=== PATIENT | female | born 1935 | race Caucasian/White ===

== ENCOUNTER 2023-08-02 16:58 | Observation (INO) | payer MEDICARE ==
[2023-08-02] MEDS ORDERED: Famotidine/PF 20 mg/2ml Vial ONE (17:39)
[2023-08-02] MEDS ORDERED: methylPREDNISolone Sod Succ/PF 125 MG/2 ML VIAL ONE (17:39)
[2023-08-02] MEDS ORDERED: diphenhydrAMINE 50 MG/ML VIAL ONE (17:39)
[2023-08-02 18:03] LABS: #Monocytes 0.3 10x3/uL (0.0-1.1); #Neutrophils 7.3 10x3/uL (1.5-8.4); %Basophils 0.5 % (0.0-2.0); %Eosinophils 0.4 % (0.0-6.0); %Lymphocytes 9.6 % (18.0-47.0); %Monocytes 3.6 % (0.0-10.0); %Neutrophils 85.8 % (40.0-75.0); Hematocrit 40.5 % (34.9-44.5); Mean Corpuscular HGB CONC 34.6 g/dL (32.0-36.0); Mean Corpuscular Hemoglobin 32.2 pg (27.0-33.0); Mean Corpuscular Volume 93.1 fl (81.6-98.3); Mean Platelet Volume 11.1 fl (7.4-10.4); Platelet Count 173 10x3/uL (150-450); RBC Distribution Width 12.5 % (11.5-14.5); Red Blood Cell (RBC) Count 4.35 10x6/uL (3.90-5.03); White Blood Cell (WBC) Count 8.5 10x3/uL (3.5-10.5)
[2023-08-02 18:18] LABS: ALT (SGPT) 10 U/L (8-55); AST (SGOT) 16 U/L (5-34); Albumin 4.4 g/dL (3.4-4.8); Alkaline Phosphatase 77 U/L (40-110); Anion Gap 18 mmol/L (10-20); BUN (Urea Nitrogen) 11 mg/dL (9.8-20.1); Bilirubin, Total 0.6 mg/dL (0.2-1.2); CK (CPK) 83 U/L (29-168); Calc. Creatinine Clearance 0 mL/min (70-130); Carbon Dioxide 20 mmol/L (23-31); Chloride 107 mmol/L (98-107); Estimated GFR 86; Globulin 2.2 g/dL (2.4-3.5); Glucose 106 mg/dL (83-110); Protein, Total 6.6 g/dL (5.8-8.1); Sodium 141 mmol/L (136-145)
[2023-08-02] MEDS ORDERED: Loperamide HCl 2 MG CAP PO PRN (19:19)
[2023-08-02] MEDS ORDERED: Acetaminophen 325 MG TAB PO PRN (19:19)
[2023-08-02] MEDS ORDERED: Calcium Carbonate 500 MG ChewTAB PO PRN (19:19)
[2023-08-02] MEDS ORDERED: HYDROcodone/Acetaminophen 5/325 mg Tablet PO PRN (19:19)
[2023-08-02] MEDS ORDERED: Ondansetron PF 4 MG/2 ML Vial IVP PRN (19:19)
[2023-08-02] MEDS ORDERED: Vancomycin 1 GM VIAL ONE (19:34)
[2023-08-02] MEDS: Ibuprofen 200 MG TAB PO SCH (22:50)
[2023-08-02] MEDS: methylPREDNISolone Sod Succ 40 MG VIAL IVP SCH (22:54)
[2023-08-02] MEDS: diphenhydrAMINE 50 MG/ML VIAL IVP SCH (22:55)
[2023-08-02 22:57] VITALS: BMI 23.3
[2023-08-02] MEDS ORDERED: Famotidine/PF 20 mg/2ml Vial SLOW IVP SCH (23:30)
[2023-08-03 04:33] LABS: #Neutrophils 4.2 10x3/uL (1.5-8.4); %Basophils 0.2 % (0.0-2.0); %Lymphocytes 9.4 % (18.0-47.0); %Monocytes 0.6 % (0.0-10.0); %Neutrophils 89.6 % (40.0-75.0); Hematocrit 37.9 % (34.9-44.5); Hemoglobin 12.6 g/dL (12.0-15.5); Mean Corpuscular HGB CONC 33.2 g/dL (32.0-36.0); Mean Corpuscular Hemoglobin 31.7 pg (27.0-33.0); Mean Corpuscular Volume 95.5 fl (81.6-98.3); Mean Platelet Volume 11.2 fl (7.4-10.4); Platelet Count 169 10x3/uL (150-450); RBC Distribution Width 12.7 % (11.5-14.5); Red Blood Cell (RBC) Count 3.97 10x6/uL (3.90-5.03); White Blood Cell (WBC) Count 4.7 10x3/uL (3.5-10.5)
[2023-08-03] MEDS ORDERED: Levothyroxine Sodium 75 MCG TAB PO SCH (06:00)
[2023-08-03] MEDS: Ibuprofen 200 MG TAB PO SCH (06:39)
[2023-08-03] MEDS: methylPREDNISolone Sod Succ 40 MG VIAL IVP SCH (06:40)
[2023-08-03] MEDS: diphenhydrAMINE 50 MG/ML VIAL IVP SCH (06:40)
[2023-08-03] MEDS ORDERED: Famotidine/PF 20 mg/2ml Vial SLOW IVP SCH (09:00)
[2023-08-03] MEDS ORDERED: cefTRIAXone\\ROCEPHIN 2 GM in Sodium Chloride 0.9% 100 ML IVPB SCH (09:00)
[2023-08-03] MEDS ORDERED: Multivitamin W/ Minerals 1 TAB PO SCH (09:00)
[2023-08-03] MEDS ORDERED: FLUoxetine HCl 20 MG CAP PO SCH (09:00)
[2023-08-03 09:33] VITALS: BP 130/68; TEMP 98
[2023-08-04 18:13] LABS: ANA Symphony (Qualitative) Negative (Negative); ANA Symphony (Quantitative) Less than 0.1 Ratio (< 0.7 Negative); CCP IgG Antibody 0.7 EliAU/mL (<7 Negative); Rheumatoid Factor IgA Antibody 1.6 IU/mL (<14 Negative); Rheumatoid Factor IgM Antibody 1.6 IU/mL (<3.5 Negative); dsDNA IgG Antibody Less than 0.6 IU/mL (<10 Negative)
== END 2023-08-03 11:40 | disposition home or self-care (01) ==
LOC: CSHERS 16:58 → CSHTELE 18:53
PROVIDERS: ADMIT Internal Medicine; ATTEND Internal Medicine
DX: T78.40XA Allergy, unspecified, initial encounter (principal); R22.33 Localized swelling, mass and lump, upper limb, bilateral; E03.9 Hypothyroidism, unspecified; F03.90 Unspecified dementia, unspecified severity, without behavioral disturbance, psychotic disturbance, mood disturbance, and anxiety; Z88.2 Allergy status to sulfonamides; Z79.82 Long term (current) use of aspirin; Z79.899 Other long term (current) drug therapy; Z90.710 Acquired absence of both cervix and uterus; Z79.890 Hormone replacement therapy
CPT/HCPCS: 71045; 73130 ×2; 80053; 82550; 83520; 83605; 84550; 85025 ×2; 86038; 86140; 86200; 86225; 93005; 96372; 96374; 96375; 96376 ×2; 99285; G0378 ×2; 36415; J0696; J1200; J1650; J2920; J2930; J3370; J3490; S0028

== ENCOUNTER 2024-04-06 20:10 | Outpatient (CLI) | payer MEDICARE | END 2024-04-06 20:11 | disposition home or self-care (01) | LOC: CSHER/OP 20:10 | PROVIDERS: ATTEND Nurse Practitioner Family | DX: W19.XXXA Unspecified fall, initial encounter (principal) ==